=== PATIENT | female | born 1960 | race Caucasian/White ===

== ENCOUNTER → 2016-06-28 | Day surgery (SDC) | payer BC ==
[~2016-06-28] MED LIST: CELEXA20 M1 PO; SIMVASTATIN20 MG PO
--- NOTE | ~2016-06-28 | OR ---
Unit #: [id number] #: [id number] Patient: LUCIA CASTANO [id number] [address] [place], [place] [address] [id number] O MR#: [id number] NAME: LUCIA CASTANO. ROOM: Date of Procedure: 06/28/2016 Admission Date: 06/28/2016 Surgeon: Daniel Mdeel M.D. : 1960 Attending Physician: Daniel Meedl M.D. Referring Physician: Daniel Medel M.D. Primary Care Physician: Chapincito Navarrete M.D. OPERATIVE REPORT JOB NOTE: VERIFY DOS. PREOPERATIVE DIAGNOSIS Screening colonoscopy. POSTOPERATIVE DIAGNOSIS Screening colonoscopy. PROCEDURE PERFORMED 1. Colonoscopy to cecum. 2. Polypectomy with electrocautery snare x3 from 15 to 20 cm. ANESTHESIA Monitored anesthesia care. FINDINGS The patient had a normal colonoscopy except for 3 small 3 to 4 mm polyps in close approximation from 15 to 20 cm. Each was excised completely with electrocautery snare, retrieved and sent to pathology. Good hemostasis was obtained. SPECIMENS Sent to pathology. COMPLICATIONS None apparent. CONDITION The patient tolerated the procedure well. INDICATIONS FOR PROCEDURE The patient is a 55-year-old white female who presents at this time for her initial screening colonoscopy. DESCRIPTION OF PROCEDURE After obtaining informed consent, the patient was brought to the endoscopy suite and after adequate monitored anesthesia care, had the colonoscope placed through the anus and advanced to the level of the cecum without difficulty with the lumen always in view. The cecum was normal as was the ileocecal valve. The ascending colon was normal as was the hepatic flexure, transverse colon, splenic flexure, and descending colon. The sigmoid colon was normal with no diverticular disease. At 15 to 20 cm, 3 Unit #: [id number] #: [id number] Patient: LUCIA CASTANO small polyps were found in close approximation to each other. Each was excised completely with electrocautery snare with good hemostasis, retrieved with a mucus trap, and sent to pathology. The remaining portion of the rectosigmoid and rectum was all within normal limits. On retroflexing in the rectum to the anorectal junction, there was no abnormality seen. The scope was removed without difficulty. On digital examination, there was good sphincter tone. No masses palpable. The patient went from the endoscopy suite to the recovery area in stable condition. RECOMMENDATIONS High-fiber diet, lots of liquids, tucks or wipes p.r.n. Call Friday for pathology. Dictated by... Vish Ko/justin TD: 06/29/2016 01:55 JOB #: [id number] CC: [facility] OPERATIVE REPORT Page 1 of 1 X Daniel Medel MD X PROCEDURE OPERATIVE NOTE
== END | disposition home or self-care (01) ==
LOC: COPS 05:35
DX: Z12.11 Encounter for screening for malignant neoplasm of colon (principal); K63.5 Polyp of colon; F17.210 Nicotine dependence, cigarettes, uncomplicated; Z79.899 Other long term (current) drug therapy; Z90.49 Acquired absence of other specified parts of digestive tract; Z98.51 Tubal ligation status
CPT/HCPCS: 88305; J2250